=== PATIENT | male | born 1990 | race Caucasian/White ===

== ENCOUNTER 2021-08-14 18:37 | Emergency (ER) | payer OTHER ==
[2021-08-14] MEDS: valACYclovir 1,000 MG Tab PO ONE (19:50)
[2021-08-14] MEDS: Take Home: Ondansetron 4 MG Tab.DIS, 5 Tab Pack PO ONE (19:50)
== END 2021-08-14 20:20 | disposition home or self-care (01) ==
LOC: VM.ED 18:37
DX: K50.90 Crohn's disease, unspecified, without complications (principal); B02.9 Zoster without complications; Z79.899 Other long term (current) drug therapy
CPT/HCPCS: 99282; 99284; A9270; Q0162

== ENCOUNTER 2023-05-18 06:45 | Emergency (ER) | payer OTHER ==
[2023-05-18] MEDS ORDERED: Sodium Chloride 0.9% 10 ML Syringe FLUSH PRN (07:03)
[2023-05-18] MEDS ORDERED: Ondansetron 4 MG in Sodium Chloride 0.9% 100 ML IV ONE (07:08)
[2023-05-18] MEDS ORDERED: Ondansetron 4 MG/2 ML SDV IM ONE (07:10)
[2023-05-18] MEDS: Ondansetron 4 MG/2 ML SDV IVPUSH ONE (07:10)
[2023-05-18] MEDS: Sodium Chloride 0.9% 1,000 ML IV ONE (07:15)
[2023-05-18] MEDS: LORazepam 2 MG/ML SDV IVPUSH PRN (07:18)
[2023-05-18 07:27] LABS: A/G RATIO 0.82; BILIRUBIN TOTAL 1.1 mg/dL (0.2-1.0); CALCIUM 9.6 mg/dL (8.5-10.1); EST CRCL DRUG DOSING (CG) 116.4 mL/min; POTASSIUM,K 4.2 mmol/L (3.5-5.1); PROTEIN TOTAL,TP 8.9 g/dL (6.4-8.2)
[2023-05-18 07:38] LABS: ANION GAP 17.2 mmol/L (5-15)
[2023-05-18 07:53] LABS: BASOPHILS PERCENT AUTO 0.1 % (0.2-1.2); EOSINOPHILS PERCENT AUTO 0.1 % (0.0-4.0); HEMATOCRIT 43.1 % (40.0-52.0); HEMOGLOBIN 14.9 g/dL (14.0-18.0); IMMATURE GRAN ABSOLUTE AUTO 0.05 x10^3/uL (0.00-0.07); LYMPHOCYTES PERCENT AUTO 7.8 % (25.0-50.0); MEAN CORPUSCULAR HEMOGLOBIN 30.4 pg (26.0-32.0); MEAN CORPUSCULAR HGB CONC 34.6 g/dL (32.0-36.0); MONOCYTES ABSOLUTE AUTO 0.7 x10^3/uL (0.0-0.8); MONOCYTES PERCENT AUTO 5.2 % (2.0-11.0); NEUTROPHILS ABSOLUTE AUTO 11.6 x10^3/uL (1.8-7.7); NEUTROPHILS PERCENT AUTO 86.4 % (50.0-80.0); PLATELET COUNT,PLT 343 x10^3/uL (130-400); WHITE BLOOD CELL COUNT,WBC 13.4 x10^3/uL (4.0-10.0)
[2023-05-18 08:01] LABS: APPEARANCE,URINE CLEAR (CLEAR); BILIRUBIN,URINE NEGATIVE (NEGATIVE); COLOR,URINE DARK YELLOW (YELLOW); GLUCOSE,URINE NEGATIVE (NEGATIVE); KETONES,URINE 15 mg/dL (NEGATIVE); LEUKOCYTE ESTERASE,URINE NEGATIVE (NEGATIVE); NITRITE,URINE NEGATIVE (NEGATIVE); OCCULT BLOOD,URINE NEGATIVE (NEGATIVE); PH,URINE 7.5 (5.0-8.0); PROTEIN,URINE NEGATIVE (NEGATIVE); UROBILINOGEN,URINE 0.2 EU/dL (0.2)
[2023-05-18] MEDS: Metoclopramide 10 MG/2 ML SDV IVPUSH ONE (08:31)
== END 2023-05-18 09:00 | disposition home or self-care (01) ==
LOC: VM.ED 06:45
DX: R10.31 Right lower quadrant pain (principal); Z87.19 Personal history of other diseases of the digestive system
CPT/HCPCS: 80053; 81003; 83690; 85025; 96361; 96374; 96375; 99284; J2060; J2405; J2765; J7030

== ENCOUNTER 2024-06-25 10:16 | Emergency (ER) | payer OTHER ==
[2024-06-25] MEDS ORDERED: Sodium Chloride 0.9% 10 ML Syringe FLUSH PRN (10:31)
[2024-06-25] MEDS: Lactated Ringers 1,000 ML IV ONE (10:35)
[2024-06-25] MEDS: Ondansetron 4 MG/2 ML SDV IVPUSH ONE (10:35)
[2024-06-25] MEDS: HYDROmorphone 1 MG/ML Syringe IVPUSH ONE (10:36)
[2024-06-25 10:38] LABS: BASOPHILS PERCENT AUTO 0.1 % (0.2-1.2); EOSINOPHILS PERCENT AUTO 0.1 % (0.0-4.0); HEMATOCRIT 45.8 % (40.0-52.0); HEMOGLOBIN 15.9 g/dL (14.0-18.0); IMMATURE GRAN ABSOLUTE AUTO 0.03 x10^3/uL (0.00-0.07); LYMPHOCYTES ABSOLUTE AUTO 1.2 x10^3/uL (1.0-4.8); LYMPHOCYTES PERCENT AUTO 6.9 % (25.0-50.0); MEAN CORPUSCULAR HEMOGLOBIN 30.4 pg (26.0-32.0); MEAN CORPUSCULAR HGB CONC 34.7 g/dL (32.0-36.0); MEAN CORPUSCULAR VOLUME 87.6 fL (78.0-93.0); MONOCYTES PERCENT AUTO 5.6 % (2.0-11.0); NEUTROPHILS ABSOLUTE AUTO 15.6 x10^3/uL (1.8-7.7); NEUTROPHILS PERCENT AUTO 87.1 % (50.0-80.0); PLATELET COUNT,PLT 389 x10^3/uL (130-400); RED BLOOD CELL COUNT 5.23 x10^6/uL (4.5-6.0)
[2024-06-25 10:53] LABS: A/G RATIO 0.83; ANION GAP 12.6 mmol/L (5-15); BILIRUBIN TOTAL 1.6 mg/dL (0.2-1.0); C-REACTIVE PROTEIN 1.41 mg/dL (<=0.50); CALCIUM 9.5 mg/dL (8.5-10.1); CREATININE 1.2 mg/dL (0.70-1.30); EST CRCL DRUG DOSING (CG) 98.95 mL/min; MAGNESIUM 1.9 mg/dL (1.8-2.4); POTASSIUM,K 4.6 mmol/L (3.5-5.1); PROTEIN TOTAL,TP 8.8 g/dL (6.4-8.2); WHITE BLOOD CELL COUNT,WBC 17.9 x10^3/uL (4.0-10.0)
[2024-06-25 10:56] LABS: LACTIC ACID 1.5 mmol/L (0.4-2.0)
[2024-06-25] MEDS: Iopamidol 612 MG/ML 100 ML Bottle IVPUSH ONE (11:42)
[2024-06-25 12:24] LABS: APPEARANCE,URINE CLEAR (CLEAR); BILIRUBIN,URINE NEGATIVE (NEGATIVE); COLOR,URINE YELLOW (YELLOW); GLUCOSE,URINE NEGATIVE (NEGATIVE); KETONES,URINE 15 mg/dL (NEGATIVE); LEUKOCYTE ESTERASE,URINE NEGATIVE (NEGATIVE); NITRITE,URINE NEGATIVE (NEGATIVE); OCCULT BLOOD,URINE NEGATIVE (NEGATIVE); PH,URINE 8.5 (5.0-8.0); PROTEIN,URINE NEGATIVE (NEGATIVE)
[2024-06-25] MEDS: HYDROmorphone 0.5 MG/0.5 ML Syringe IVPUSH ONE (13:34)
== END 2024-06-25 14:45 | disposition home or self-care (01) ==
LOC: VM.ED 10:16
DX: K56.600 Partial intestinal obstruction, unspecified as to cause (principal); I10 Essential (primary) hypertension; Z79.899 Other long term (current) drug therapy
CPT/HCPCS: 74177; 80053; 81003; 82150; 83605; 83690; 83735; 85025; 86140; 96361; 96374; 96375; 96376; 99284-25; J1171; J2405; J7120; Q9967